=== PATIENT | male | born 1980 | race Two or more races ===

== ENCOUNTER 2019-03-01 17:02 | Emergency (ER) | payer SELFPAY ==
[~2019-03-01] VITALS: Ht 165.1 cm; Wt 72.6 kg
[2019-03-01 17:57] VITALS: BP 118/75
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
[2019-03-01] MEDS ORDERED: Acetaminophen 500mg (ES) tab ORAL ONE (18:15)
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
[2019-03-01] MEDS ORDERED: IBUPROFEN600 MG ORAL (18:46)
[2019-03-01] MEDS ORDERED: ROBAXIN-750750 MG PO (18:46)
[2019-03-01 19:01] VITALS: BP 118/75
--- NOTE | 2019-03-01 19:02 | NUR ---
ER DISCHARGE NOTE: Patient is cleared to be discharged per ERPA, pt is aox4, on room air, with stable vital signs. pt was given dc and prescription instructions, pt was able to verbalize understanding, pt id band removed. pt is able to ambulate with steady gait. pt took all belongings.
== END 2019-03-01 19:02 | disposition home or self-care (01) ==
LOC: EMR 17:57
DX: S70.12XA Contusion of left thigh, initial encounter (principal); S29.012A Strain of muscle and tendon of back wall of thorax, initial encounter; S16.1XXA Strain of muscle, fascia and tendon at neck level, initial encounter; V43.52XA Car driver injured in collision with other type car in traffic accident, initial encounter; Y92.410 Unspecified street and highway as the place of occurrence of the external cause; Z88.0 Allergy status to penicillin; M25.512 Pain in left shoulder
CPT/HCPCS: 99282